=== PATIENT | male | born 1975 | race Hispanic/Latino ===

== ENCOUNTER 2018-05-29 19:37 | Inpatient (IN) | payer OTHER ==
[~2018-05-29] VITALS: Ht 175.3 cm; Wt 125.5 kg
[2018-05-29] MEDS: SODIUM CHLORIDE 0.9% 1000ML 1,000 ML IV SCH (02:00)
[2018-05-29 20:14] LABS: BASOPHILS % (AUTO) 0.8 % (0.0-5.0); EOSINOPHILS % (AUTO) 1.6 % (0.0-8.0); HEMATOCRIT 38.8 % (42-54); LYMPHOCYTES % (AUTO) 15.3 % (21.0-51.0); MEAN CORPUSCULAR HEMOGLOBIN 31.5 pg (27.0-33.0); MEAN CORPUSCULAR HGB CONC 33.8 g/dL (32.0-36.0); MEAN CORPUSCULAR VOLUME 93.1 fL (79-99); MONOCYTES % (AUTO) 10.6 % (3.0-13.0); NEUTROPHILS % (AUTO) 71.7 % (40.0-77.0); PLATELET COUNT (AUTO) 293 K/uL (130-400); RED BLOOD CELL COUNT(AUTO) 4.17 MIL/uL (4.50-6.20); RED CELL DISTRIBUTION WIDTH 13.9 % (11.0-15.5); WHITE BLOOD COUNT (AUTO) 10.6 K/uL (4.8-10.8)
[2018-05-29 20:28] LABS: CREATININE 0.9 mg/dL (0.5-1.5); POTASSIUM 3.4 mmol/L (3.5-5.1)
[2018-05-29 20:32] LABS: ALBUMIN 3.7 g/dL (3.5-5.0); BILIRUBIN,TOTAL 0.6 mg/dL (0.2-1.0); TOTAL PROTEIN, SERUM 7.4 g/dL (6.0-8.3)
[2018-05-29] MEDS ORDERED: ONDANSETRON HCL 4 MG/2 ML VIAL ONE (20:33)
[2018-05-29] MEDS ORDERED: MORPHINE SULFATE 4 MG/1ML SYG ONE (20:33)
[2018-05-29] MEDS ORDERED: IOHEXOL-350 75 ML VIAL IV ONE (20:40)
[2018-05-29] MEDS ORDERED: SODIUM CHLORIDE 0.9% 1000ML 1,000 ML IV ONE ×2 (20:51→23:21)
[2018-05-29 20:54] LABS: APPEARANCE,URINE Clear (CLEAR); BILIRUBIN,URINE Negative (NEGATIVE); COLOR,URINE Yellow (YELLOW); GLUCOSE, URINE (UA) Negative (NEGATIVE); KETONES,URINE Negative (NEGATIVE); LEUKOCYTE ESTERASE ,URINE Negative (NEGATIVE); NITRATE,URINE Negative (NEGATIVE); OCCULT BLOOD,URINE Negative (NEGATIVE); PH,URINE 5.5 (5.0-8.0); PROTEIN,URINE Negative (NEGATIVE); UROBILINOGEN,URINE 0.2 mg/dL (0.2-1.0)
[2018-05-29] MEDS ORDERED: SODIUM CHLORIDE 0.9% 50 ML IV ONE (21:46)
[2018-05-29] MEDS ORDERED: ZOSYN 3.375GM+NS 50ML 50 ML IV ONE (21:46)
[2018-05-29] MEDS ORDERED: KETOROLAC TROMETHAMINE 30MG/ML ONE (21:50)
[2018-05-29] MEDS ORDERED: HYDROMORPHONE 1 MG/1 ML AMP ONE (21:50)
[2018-05-29] MEDS ORDERED: VANCOMYCIN 1GM+NS 250ML 250 ML IV ONE (23:21)
[2018-05-29] MEDS ORDERED: ACETAMINOPHEN 325 MG TAB ONE (23:22)
[2018-05-29] MEDS ORDERED: ACETAMINOPHEN 325 MG TAB PO PRN (23:30)
[2018-05-30] VITALS (7 sets, daily range): BP systolic 97–129; BP diastolic 59–77
[2018-05-30] MEDS: CLINDAMYCIN 600 MG/D5% WATER 50 ML IV SCH ×3 (02:40→17:33)
[2018-05-30] MEDS: ZOSYN 3.375GM+NS 50ML 50 ML IV SCH ×3 (05:04→20:32)
[2018-05-30 05:29] LABS: BASOPHILS % (AUTO) 0.1 % (0.0-5.0); EOSINOPHILS % (AUTO) 0.4 % (0.0-8.0); HEMATOCRIT 37.3 % (42-54); LYMPHOCYTES % (AUTO) 5.5 % (21.0-51.0); MEAN CORPUSCULAR HEMOGLOBIN 30.5 pg (27.0-33.0); MEAN CORPUSCULAR HGB CONC 33.2 g/dL (32.0-36.0); MEAN CORPUSCULAR VOLUME 91.8 fL (79-99); MONOCYTES % (AUTO) 9.9 % (3.0-13.0); NEUTROPHILS % (AUTO) 84.1 % (40.0-77.0); PLATELET COUNT (AUTO) 237 K/uL (130-400); RED BLOOD CELL COUNT(AUTO) 4.07 MIL/uL (4.50-6.20); RED CELL DISTRIBUTION WIDTH 13.9 % (11.0-15.5); WHITE BLOOD COUNT (AUTO) 18.6 K/uL (4.8-10.8)
[2018-05-30 05:44] LABS: CRP QUANTITATIVE 45.5 mg/L (0.00-9.0)
[2018-05-30] MEDS ORDERED: LIDOCAINE HCL-MPF 1% 2ML VIAL IVP PRN (06:30)
[2018-05-30] MEDS ORDERED: POTASSIUM CHLORIDE 10% ELIXIR 20 MEQ/15 ML UDCUP PO PRN (06:30)
[2018-05-30] MEDS ORDERED: POTASSIUM CHLORIDE 10MEQ/100ML 100 ML IV PRN (06:30)
[2018-05-30] MEDS ORDERED: POTASSIUM CHLORIDE 20 MEQ ERTAB PO PRN (06:30)
[2018-05-30] MEDS: ENOXAPARIN SODIUM 40 MG/0.4 ML SYRINGE SQ SCH (08:38)
[2018-05-30] MEDS: FAMOTIDINE/PF 20 MG/2 ML VIAL IV SCH ×2 (08:38→20:32)
[2018-05-30] MEDS: SODIUM CHLORIDE 0.9% 1000ML 1,000 ML IV SCH ×3 (08:42→23:33)
[2018-05-30] MEDS: MORPHINE SULFATE 2 MG/ML 1ML SYG IV PRN (20:35)
[2018-05-31] VITALS: BP 116/70
[2018-05-31] MEDS: CLINDAMYCIN 600 MG/D5% WATER 50 ML IV SCH ×3 (02:00→18:51)
[2018-05-31 04:17] VITALS: BP 119/72
[2018-05-31 04:24] LABS: BASOPHILS % (AUTO) 0.2 % (0.0-5.0); EOSINOPHILS % (AUTO) 2.5 % (0.0-8.0); HEMATOCRIT 37.5 % (42-54); LYMPHOCYTES % (AUTO) 10.4 % (21.0-51.0); MEAN CORPUSCULAR HEMOGLOBIN 31.2 pg (27.0-33.0); MEAN CORPUSCULAR HGB CONC 33.5 g/dL (32.0-36.0); MEAN CORPUSCULAR VOLUME 93.1 fL (79-99); MONOCYTES % (AUTO) 8.8 % (3.0-13.0); NEUTROPHILS % (AUTO) 78.1 % (40.0-77.0); PLATELET COUNT (AUTO) 275 K/uL (130-400); RED BLOOD CELL COUNT(AUTO) 4.03 MIL/uL (4.50-6.20); WHITE BLOOD COUNT (AUTO) 9.9 K/uL (4.8-10.8)
[2018-05-31 04:31] LABS: POTASSIUM 3.5 mmol/L (3.5-5.1)
[2018-05-31] MEDS: ZOSYN 3.375GM+NS 50ML 50 ML IV SCH ×3 (04:54→22:11)
[2018-05-31 08:00] VITALS: BP 120/83
[2018-05-31] MEDS: ENOXAPARIN SODIUM 40 MG/0.4 ML SYRINGE SQ SCH (10:10)
[2018-05-31] MEDS: FAMOTIDINE/PF 20 MG/2 ML VIAL IV SCH ×2 (10:10→22:11)
[2018-05-31 12:00] VITALS: BP 118/74
[2018-05-31] MEDS: SODIUM CHLORIDE 0.9% 1000ML 1,000 ML IV SCH (13:22)
[2018-05-31 16:00] VITALS: BP 133/82
[2018-05-31 19:00] VITALS: BP 107/63
[2018-05-31] MEDS: MORPHINE SULFATE 2 MG/ML 1ML SYG IV PRN (23:39)
[2018-06-01] MEDS: SODIUM CHLORIDE 0.9% 1000ML 1,000 ML IV SCH ×4 (00:33→23:40)
[2018-06-01] MEDS: CLINDAMYCIN 600 MG/D5% WATER 50 ML IV SCH ×3 (02:03→17:40)
[2018-06-01 04:20] VITALS: BP 101/67
[2018-06-01 04:50] LABS: BASOPHILS % (AUTO) 0.4 % (0.0-5.0); EOSINOPHILS % (AUTO) 5.9 % (0.0-8.0); HEMATOCRIT 37.8 % (42-54); LYMPHOCYTES % (AUTO) 19.4 % (21.0-51.0); MEAN CORPUSCULAR HEMOGLOBIN 31.2 pg (27.0-33.0); MEAN CORPUSCULAR HGB CONC 33.2 g/dL (32.0-36.0); MEAN CORPUSCULAR VOLUME 93.8 fL (79-99); MONOCYTES % (AUTO) 10.2 % (3.0-13.0); NEUTROPHILS % (AUTO) 64.1 % (40.0-77.0); PLATELET COUNT (AUTO) 257 K/uL (130-400); RED BLOOD CELL COUNT(AUTO) 4.03 MIL/uL (4.50-6.20); RED CELL DISTRIBUTION WIDTH 14.1 % (11.0-15.5)
[2018-06-01 05:01] LABS: POTASSIUM 3.8 mmol/L (3.5-5.1)
[2018-06-01] MEDS: ZOSYN 3.375GM+NS 50ML 50 ML IV SCH ×3 (05:06→21:10)
[2018-06-01 07:58] VITALS: BP 116/79
[2018-06-01] MEDS: FAMOTIDINE/PF 20 MG/2 ML VIAL IV SCH ×2 (09:00→21:10)
[2018-06-01] MEDS: ENOXAPARIN SODIUM 40 MG/0.4 ML SYRINGE SQ SCH (09:01)
[2018-06-01 11:46] VITALS: BP 123/75
[2018-06-01 16:00] VITALS: BP 121/84
[2018-06-01 20:19] VITALS: BP 115/75
[2018-06-01 23:50] VITALS: BP 127/86
[2018-06-02] MEDS: CLINDAMYCIN 600 MG/D5% WATER 50 ML IV SCH ×3 (01:23→18:40)
[2018-06-02 03:39] VITALS: BP 118/75
[2018-06-02] MEDS: ZOSYN 3.375GM+NS 50ML 50 ML IV SCH ×3 (04:34→21:49)
[2018-06-02 05:37] LABS: CREATININE 1.1 mg/dL (0.5-1.5); POTASSIUM 3.5 mmol/L (3.5-5.1)
[2018-06-02 05:44] LABS: HEMATOCRIT 37.7 % (42-54); MEAN CORPUSCULAR HEMOGLOBIN 31.4 pg (27.0-33.0); MEAN CORPUSCULAR HGB CONC 33.9 g/dL (32.0-36.0); MEAN CORPUSCULAR VOLUME 92.7 fL (79-99); PLATELET COUNT (AUTO) 299 K/uL (130-400); RED BLOOD CELL COUNT(AUTO) 4.07 MIL/uL (4.50-6.20); RED CELL DISTRIBUTION WIDTH 13.7 % (11.0-15.5); WHITE BLOOD COUNT (AUTO) 6.1 K/uL (4.8-10.8)
[2018-06-02 06:14] LABS: BAND NEUTROPHILS % (MANUAL) 2 % (0-2); BASOPHILS % (MANUAL) 1 % (0-2); EOSINOPHILS % (MANUAL) 6 % (1-6); LYMPHOCYTES % (MANUAL) 25 % (22-44); MONOCYTES % (MANUAL) 10 % (2-9); SEGMENTED NEUTROPHILS % 56 % (40-70)
[2018-06-02 06:15] LABS: MAN.DIFF COMMENT-IMPRESSION MANUAL DIFFERENTIAL
[2018-06-02 08:00] VITALS: BP 128/88
[2018-06-02] MEDS: FAMOTIDINE/PF 20 MG/2 ML VIAL IV SCH ×2 (09:51→21:49)
[2018-06-02] MEDS: ENOXAPARIN SODIUM 40 MG/0.4 ML SYRINGE SQ SCH (09:55)
[2018-06-02] MEDS ORDERED: LIDOCAINE HCL 1% 20 ML VIAL INJ SCH (11:15)
[2018-06-02 11:57] VITALS: BP 129/87
[2018-06-02] MEDS: SODIUM CHLORIDE 0.9% 1000ML 1,000 ML IV SCH ×2 (12:46→23:30)
[2018-06-02 16:00] VITALS: BP 125/79
[2018-06-02] MEDS: MORPHINE SULFATE 2 MG/ML 1ML SYG IV PRN (18:43)
[2018-06-02 19:35] VITALS: BP 127/74
[2018-06-02 23:28] VITALS: BP 120/66
[2018-06-03] MEDS: CLINDAMYCIN 600 MG/D5% WATER 50 ML IV SCH ×3 (02:37→17:34)
[2018-06-03 04:00] VITALS: BP 120/76
[2018-06-03] MEDS: ZOSYN 3.375GM+NS 50ML 50 ML IV SCH ×3 (05:05→21:56)
[2018-06-03 06:03] LABS: HEMATOCRIT 39.6 % (42-54); MEAN CORPUSCULAR HEMOGLOBIN 31.1 pg (27.0-33.0); MEAN CORPUSCULAR HGB CONC 33.4 g/dL (32.0-36.0); MEAN CORPUSCULAR VOLUME 93.3 fL (79-99); PLATELET COUNT (AUTO) 289 K/uL (130-400); RED BLOOD CELL COUNT(AUTO) 4.24 MIL/uL (4.50-6.20); RED CELL DISTRIBUTION WIDTH 14.1 % (11.0-15.5); WHITE BLOOD COUNT (AUTO) 6.5 K/uL (4.8-10.8)
[2018-06-03 06:18] LABS: CREATININE 1.1 mg/dL (0.5-1.5); POTASSIUM 3.7 mmol/L (3.5-5.1)
[2018-06-03 06:54] LABS: BAND NEUTROPHILS % (MANUAL) 3 % (0-2); EOSINOPHILS % (MANUAL) 6 % (1-6); LYMPHOCYTES % (MANUAL) 24 % (22-44); MONOCYTES % (MANUAL) 7 % (2-9); REACTIVE LYMPHOCYTES 1 % (0-0); SEGMENTED NEUTROPHILS % 59 % (40-70)
[2018-06-03 06:55] LABS: MAN.DIFF COMMENT-IMPRESSION MANUAL DIFFERENTIAL; PLATELET MORPHOLOGY COMMENT ADEQUATE
[2018-06-03 08:00] VITALS: BP 114/80
[2018-06-03] MEDS: FAMOTIDINE/PF 20 MG/2 ML VIAL IV SCH ×2 (10:06→21:56)
[2018-06-03] MEDS: ENOXAPARIN SODIUM 40 MG/0.4 ML SYRINGE SQ SCH (10:10)
[2018-06-03] MEDS: SODIUM CHLORIDE 0.9% 1000ML 1,000 ML IV SCH ×2 (10:20→13:21)
[2018-06-03 12:00] VITALS: BP 114/58
[2018-06-03 16:00] VITALS: BP 116/70
[2018-06-03 19:30] VITALS: BP 125/79
[2018-06-03 23:28] VITALS: BP 102/62
[2018-06-04] MEDS: CLINDAMYCIN 600 MG/D5% WATER 50 ML IV SCH ×3 (01:41→18:00)
[2018-06-04 03:24] VITALS: BP 93/54
[2018-06-04 04:48] LABS: BASOPHILS % (AUTO) 0.3 % (0.0-5.0); EOSINOPHILS % (AUTO) 5.6 % (0.0-8.0); HEMATOCRIT 38.2 % (42-54); LYMPHOCYTES % (AUTO) 19.2 % (21.0-51.0); MEAN CORPUSCULAR HEMOGLOBIN 31.7 pg (27.0-33.0); MEAN CORPUSCULAR HGB CONC 33.8 g/dL (32.0-36.0); MEAN CORPUSCULAR VOLUME 93.7 fL (79-99); MONOCYTES % (AUTO) 11.3 % (3.0-13.0); NEUTROPHILS % (AUTO) 63.6 % (40.0-77.0); PLATELET COUNT (AUTO) 273 K/uL (130-400); RED BLOOD CELL COUNT(AUTO) 4.08 MIL/uL (4.50-6.20); RED CELL DISTRIBUTION WIDTH 14.1 % (11.0-15.5); WHITE BLOOD COUNT (AUTO) 6.9 K/uL (4.8-10.8)
[2018-06-04 04:54] LABS: CREATININE 1.1 mg/dL (0.5-1.5); POTASSIUM 3.9 mmol/L (3.5-5.1)
[2018-06-04] MEDS: SODIUM CHLORIDE 0.9% 1000ML 1,000 ML IV SCH (05:11)
[2018-06-04] MEDS: ZOSYN 3.375GM+NS 50ML 50 ML IV SCH ×3 (05:11→21:22)
[2018-06-04 08:00] VITALS: BP 117/66
[2018-06-04] MEDS: FAMOTIDINE/PF 20 MG/2 ML VIAL IV SCH ×2 (09:29→21:22)
[2018-06-04] MEDS: ENOXAPARIN SODIUM 40 MG/0.4 ML SYRINGE SQ SCH (09:32)
[2018-06-04 11:56] VITALS: BP 120/79
[2018-06-04 16:00] VITALS: BP 109/69
[2018-06-04 20:00] VITALS: BP 120/70
[2018-06-04] MEDS: NEOMY SULF/BACITRA/POLYMYXIN B 1 EACH PACKET TP SCH ×2 (21:28→21:42)
[2018-06-05] VITALS (7 sets, daily range): BP systolic 100–135; BP diastolic 58–88
[2018-06-05] MEDS: CLINDAMYCIN 600 MG/D5% WATER 50 ML IV SCH ×3 (02:23→17:26)
[2018-06-05] MEDS: ZOSYN 3.375GM+NS 50ML 50 ML IV SCH ×3 (04:35→22:10)
[2018-06-05] MEDS: SODIUM CHLORIDE 0.9% 1000ML 1,000 ML IV SCH ×3 (04:35→22:11)
[2018-06-05] MEDS: FAMOTIDINE/PF 20 MG/2 ML VIAL IV SCH ×2 (08:15→22:10)
[2018-06-05] MEDS: ENOXAPARIN SODIUM 40 MG/0.4 ML SYRINGE SQ SCH (08:16)
[2018-06-05] MEDS: NEOMY SULF/BACITRA/POLYMYXIN B 1 EACH PACKET TP SCH (22:10)
[2018-06-06 03:00] VITALS: BP 114/55
[2018-06-06] MEDS: CLINDAMYCIN 600 MG/D5% WATER 50 ML IV SCH ×3 (03:26→18:53)
[2018-06-06] MEDS: ZOSYN 3.375GM+NS 50ML 50 ML IV SCH ×3 (06:46→21:26)
[2018-06-06 07:00] VITALS: BP 103/61
[2018-06-06] MEDS: ENOXAPARIN SODIUM 40 MG/0.4 ML SYRINGE SQ SCH (10:57)
[2018-06-06] MEDS: FAMOTIDINE/PF 20 MG/2 ML VIAL IV SCH ×2 (10:57→21:26)
[2018-06-06] MEDS: SODIUM CHLORIDE 0.9% 1000ML 1,000 ML IV SCH ×2 (10:58→18:20)
[2018-06-06 11:00] VITALS: BP 107/56
[2018-06-06 16:00] VITALS: BP 106/64
[2018-06-06 19:20] VITALS: BP 127/77
[2018-06-06] MEDS: NEOMY SULF/BACITRA/POLYMYXIN B 1 EACH PACKET TP SCH (21:26)
[2018-06-07] VITALS (7 sets, daily range): BP systolic 96–124; BP diastolic 57–74
[2018-06-07] MEDS: CLINDAMYCIN 600 MG/D5% WATER 50 ML IV SCH ×3 (02:33→17:51)
[2018-06-07] MEDS: ZOSYN 3.375GM+NS 50ML 50 ML IV SCH ×3 (06:27→20:54)
[2018-06-07] MEDS: FAMOTIDINE/PF 20 MG/2 ML VIAL IV SCH ×2 (08:04→20:54)
[2018-06-07] MEDS: ENOXAPARIN SODIUM 40 MG/0.4 ML SYRINGE SQ SCH (08:04)
[2018-06-07] MEDS: SODIUM CHLORIDE 0.9% 1000ML 1,000 ML IV SCH ×2 (08:23→14:56)
[2018-06-07] MEDS: NEOMY SULF/BACITRA/POLYMYXIN B 1 EACH PACKET TP SCH (20:55)
[2018-06-08] MEDS: CLINDAMYCIN 600 MG/D5% WATER 50 ML IV SCH ×3 (01:11→17:23)
[2018-06-08 03:00] VITALS: BP 110/68
[2018-06-08] MEDS: ZOSYN 3.375GM+NS 50ML 50 ML IV SCH ×3 (05:34→21:30)
[2018-06-08 07:55] VITALS: BP 97/56
[2018-06-08] MEDS: FAMOTIDINE/PF 20 MG/2 ML VIAL IV SCH ×2 (08:23→21:30)
[2018-06-08] MEDS: ENOXAPARIN SODIUM 40 MG/0.4 ML SYRINGE SQ SCH (08:24)
[2018-06-08 11:57] VITALS: BP 102/65
[2018-06-08 16:01] VITALS: BP 114/54
[2018-06-08 19:00] VITALS: BP 120/63
[2018-06-08] MEDS: NEOMY SULF/BACITRA/POLYMYXIN B 1 EACH PACKET TP SCH (21:31)
[2018-06-08 23:00] VITALS: BP 125/79
[2018-06-09] MEDS: CLINDAMYCIN 600 MG/D5% WATER 50 ML IV SCH (02:03)
[2018-06-09 03:00] VITALS: BP 113/69
[2018-06-09] MEDS: ZOSYN 3.375GM+NS 50ML 50 ML IV SCH ×3 (05:34→22:15)
[2018-06-09 07:58] VITALS: BP 104/51
[2018-06-09] MEDS: FAMOTIDINE/PF 20 MG/2 ML VIAL IV SCH ×2 (09:33→22:15)
[2018-06-09] MEDS: ENOXAPARIN SODIUM 40 MG/0.4 ML SYRINGE SQ SCH (09:34)
[2018-06-09 11:16] VITALS: BP 106/58
[2018-06-09 16:01] VITALS: BP 119/67
[2018-06-09 19:00] VITALS: BP 119/85
[2018-06-09] MEDS: NEOMY SULF/BACITRA/POLYMYXIN B 1 EACH PACKET TP SCH (22:16)
[2018-06-09 23:00] VITALS: BP 116/72
[2018-06-09] MEDS: MORPHINE SULFATE 4 MG/1ML SYG IVP PRN (23:10)
[2018-06-10 03:00] VITALS: BP 102/53
[2018-06-10] MEDS: ZOSYN 3.375GM+NS 50ML 50 ML IV SCH ×3 (04:57→20:08)
[2018-06-10 07:00] VITALS: BP 104/60
[2018-06-10] MEDS: ENOXAPARIN SODIUM 40 MG/0.4 ML SYRINGE SQ SCH (10:16)
[2018-06-10] MEDS: FAMOTIDINE/PF 20 MG/2 ML VIAL IV SCH ×2 (10:16→20:08)
[2018-06-10 11:37] VITALS: BP 98/53
[2018-06-10] MEDS: MORPHINE SULFATE 4 MG/1ML SYG IVP PRN (11:43)
[2018-06-10 16:33] VITALS: BP 110/54
[2018-06-10 20:00] VITALS: BP 123/56
[2018-06-10] MEDS: NEOMY SULF/BACITRA/POLYMYXIN B 1 EACH PACKET TP SCH (20:08)
[2018-06-11] VITALS (12 sets, daily range): BP systolic 100–120; BP diastolic 61–74
[2018-06-11] MEDS: ZOSYN 3.375GM+NS 50ML 50 ML IV SCH ×3 (04:45→19:55)
[2018-06-11 04:55] LABS: HEMATOCRIT 39.6 % (42-54); MEAN CORPUSCULAR HEMOGLOBIN 30.5 pg (27.0-33.0); MEAN CORPUSCULAR VOLUME 92.6 fL (79-99); PLATELET COUNT (AUTO) 307 K/uL (130-400); RED BLOOD CELL COUNT(AUTO) 4.28 MIL/uL (4.50-6.20); WHITE BLOOD COUNT (AUTO) 7.1 K/uL (4.8-10.8)
[2018-06-11 05:05] LABS: CREATININE 1.2 mg/dL (0.5-1.5); POTASSIUM 3.8 mmol/L (3.5-5.1)
[2018-06-11 05:06] LABS: INR 0.96 (0.85-1.15); PROTHROMBIN TIME 10.1 SEC (9.6-11.6)
[2018-06-11] MEDS ORDERED: LIDOCAINE HCL 2% 20ML ONE (08:56)
[2018-06-11] MEDS ORDERED: SODIUM BICARB 50MEQ 50ML VIAL ONE (08:56)
[2018-06-11] MEDS: FAMOTIDINE/PF 20 MG/2 ML VIAL IV SCH ×2 (09:00→19:55)
[2018-06-11] MEDS: ENOXAPARIN SODIUM 40 MG/0.4 ML SYRINGE SQ SCH (09:00)
[2018-06-11] MEDS ORDERED: LIDOCAINE 1%-EPI 1:100,000 20 ML VIAL IJ ONE (09:05)
[2018-06-11] MEDS ORDERED: FENTANYL CITRATE PF 50 MCG/1 ML 2ML VIAL ONE (09:44)
[2018-06-11] MEDS ORDERED: MIDAZOLAM HCL 1 MG/ML 2ML VIAL ONE (09:44)
[2018-06-11] MEDS ORDERED: OCTYL 2-CYANOACRYLATE 1 EACH TP ONE (10:09)
[2018-06-11] MEDS: NEOMY SULF/BACITRA/POLYMYXIN B 1 EACH PACKET TP SCH (19:55)
[2018-06-12] VITALS (7 sets, daily range): BP systolic 105–128; BP diastolic 56–80
[2018-06-12] MEDS: ZOSYN 3.375GM+NS 50ML 50 ML IV SCH ×3 (04:17→22:06)
[2018-06-12] MEDS: FAMOTIDINE/PF 20 MG/2 ML VIAL IV SCH ×2 (10:28→22:07)
[2018-06-12] MEDS: ENOXAPARIN SODIUM 40 MG/0.4 ML SYRINGE SQ SCH (10:28)
[2018-06-12] MEDS: NEOMY SULF/BACITRA/POLYMYXIN B 1 EACH PACKET TP SCH (22:07)
[2018-06-13 03:00] VITALS: BP 110/74
[2018-06-13 05:38] LABS: HEMATOCRIT 41.8 % (42-54); MEAN CORPUSCULAR HEMOGLOBIN 31.3 pg (27.0-33.0); MEAN CORPUSCULAR HGB CONC 33.5 g/dL (32.0-36.0); MEAN CORPUSCULAR VOLUME 93.4 fL (79-99); PLATELET COUNT (AUTO) 354 K/uL (130-400); RED BLOOD CELL COUNT(AUTO) 4.48 MIL/uL (4.50-6.20); RED CELL DISTRIBUTION WIDTH 14.1 % (11.0-15.5); WHITE BLOOD COUNT (AUTO) 7.2 K/uL (4.8-10.8)
[2018-06-13 05:47] LABS: CREATININE 1.3 mg/dL (0.5-1.5)
[2018-06-13 08:00] VITALS: BP 112/70
[2018-06-13] MEDS: ENOXAPARIN SODIUM 40 MG/0.4 ML SYRINGE SQ SCH (10:44)
[2018-06-13] MEDS: FAMOTIDINE/PF 20 MG/2 ML VIAL IV SCH (10:44)
[2018-06-13] MEDS ORDERED: ZOSYN 3.375GM+NS 50ML 50 ML IV SCH (10:45)
[2018-06-13 12:00] VITALS: BP 117/65
[2018-06-13 16:00] VITALS: BP 116/73
== END 2018-06-13 17:52 | disposition home or self-care (01) | DRG 596 ==
LOC: EDH 19:37 → EDHIP 19:38 → OBSVTOIN 19:38 → 3AH 05-30 00:53
PROVIDERS: ADMIT Internal Medicine; ATTEND Internal Medicine
PROC: 0JBQ3ZX Excision of Right Foot Subcutaneous Tissue and Fascia, Percutaneous Approach, Diagnostic (ICD-10-PCS; principal; 2018-06-03)
PROC: 02HV33Z Insertion of Infusion Device into Superior Vena Cava, Percutaneous Approach (ICD-10-PCS; 2018-06-11)
PROC: B548ZZA Ultrasonography of Superior Vena Cava, Guidance (ICD-10-PCS; 2018-06-11)
PROC: 3E0234Z Introduction of Serum, Toxoid and Vaccine into Muscle, Percutaneous Approach (ICD-10-PCS; 2018-06-11)
DX: C43.71 Malignant melanoma of right lower limb, including hip (principal); N13.30 Unspecified hydronephrosis; Z68.41 Body mass index [BMI] 40.0-44.9, adult; L03.115 Cellulitis of right lower limb; L97.319 Non-pressure chronic ulcer of right ankle with unspecified severity; K40.90 Unilateral inguinal hernia, without obstruction or gangrene, not specified as recurrent; E87.6 Hypokalemia; I10 Essential (primary) hypertension; E66.01 Morbid (severe) obesity due to excess calories; F17.210 Nicotine dependence, cigarettes, uncomplicated; I86.1 Scrotal varices; L97.519 Non-pressure chronic ulcer of other part of right foot with unspecified severity; Y99.0 Civilian activity done for income or pay; Z23 Encounter for immunization; Z91.19 Patient's noncompliance with other medical treatment and regimen
CPT/HCPCS: 36415; 36561; 73630; 73721; 74177; 76870; 77001; 80048; 80053; 81003; 83605; 83690; 85025; 85027; 85610; 85651; 85730; 86140; 87040; 87070; 87076; 87077; 87186; 88304; 99156; 99157; 99291; J1170; J1644; J1650; J1885; J2250; J2270; J2405; J2543; J3010; J3370; J3490; J7030; Q2038; Q9967

== ENCOUNTER 2019-01-18 09:20 | Emergency (ER) | payer MEDICAID, OTHER ==
[2019-01-18] MEDS ORDERED: ASPIRIN 325 MG TABLET ONE (09:43)
[2019-01-18] MEDS ORDERED: NITROGLYCERIN 1GM/1 INCH PACKET TD ONE (09:43)
[2019-01-18 09:59] LABS: BASOPHILS % (AUTO) 0.9 % (0.0-5.0); EOSINOPHILS % (AUTO) 0.7 % (0.0-8.0); HEMATOCRIT 32.4 % (42-54); LYMPHOCYTES % (AUTO) 21.4 % (21.0-51.0); MEAN CORPUSCULAR HEMOGLOBIN 25.2 pg (27.0-33.0); MEAN CORPUSCULAR HGB CONC 32.1 g/dL (32.0-36.0); MEAN CORPUSCULAR VOLUME 78.4 fL (79-99); MONOCYTES % (AUTO) 6.5 % (3.0-13.0); NEUTROPHILS % (AUTO) 70.5 % (40.0-77.0); PLATELET COUNT (AUTO) 541 K/uL (130-400); RED BLOOD CELL COUNT(AUTO) 4.13 MIL/uL (4.50-6.20); RED CELL DISTRIBUTION WIDTH 16.6 % (11.0-15.5); WHITE BLOOD COUNT (AUTO) 6.1 K/uL (4.8-10.8)
[2019-01-18 10:07] LABS: CREATININE 0.9 mg/dL (0.5-1.5)
[2019-01-18 10:08] LABS: PARTIAL THROMBOPLASTIN TIME 30.1 SEC (26.3-35.5); PROTHROMBIN TIME 10.5 SEC (9.6-11.6)
[2019-01-18 10:11] LABS: ALBUMIN 3.3 g/dL (3.5-5.0); BILIRUBIN,TOTAL 0.6 mg/dL (0.2-1.0); TOTAL PROTEIN, SERUM 8.5 g/dL (6.0-8.3)
== END 2019-01-18 13:22 | disposition home or self-care (01) ==
LOC: EDH 09:20
DX: R07.89 Other chest pain (principal); Z85.820 Personal history of malignant melanoma of skin; Z98.890 Other specified postprocedural states
CPT/HCPCS: 36415; 71045; 80053; 84484; 85025; 85610; 85730; 93005